=== PATIENT | male | born 1965 | race Caucasian/White ===

== ENCOUNTER 2018-10-06 06:39 | Emergency (ER) | payer OTHER ==
[~2018-10-06] VITALS: Ht 182.9 cm; Wt 78.4 kg
[2018-10-06 07:27] LABS: BASOPHILS ABSOLUTE AUTO 0.06 K/mm3 (0.00-0.23); BASOPHILS PERCENT AUTO 0 % (0-2); EOSINOPHILS ABSOLUTE AUTO 0.08 K/mm3 (0.00-0.68); EOSINOPHILS PERCENT AUTO 1 % (0-6); Hematocrit 48.1 % (37.0-53.0); Hemoglobin 17.4 g/dL (13.5-17.5); IMMATURE GRAN ABSOLUTE AUTO 0.07 K/mm3 (0.00-0.10); IMMATURE GRAN PERCENT AUTO 0 % (0-1); LYMPHOCYTES ABSOLUTE AUTO 1.22 K/mm3 (0.84-5.20); LYMPHOCYTES PERCENT AUTO 8 % (21-46); MONOCYTES ABSOLUTE AUTO 1.52 K/mm3 (0.16-1.47); MONOCYTES PERCENT AUTO 10 % (4-13); Mean Corpuscular HGB 34.8 pg (26.0-34.0); Mean Corpuscular HGB Conc 36.2 g/dL (31.5-36.5); Mean Corpuscular Volume 96 fL (80-100); NEUTROPHILS ABSOLUTE AUTO 13.01 K/mm3 (1.96-9.15); NEUTROPHILS PERCENT AUTO 82 % (41-73); Platelet Count 158 K/mm3 (150-400); RDW Standard Deviation 45.6 fL (35.1-46.3); White Blood Cell Count 15.96 K/mm3 (4.00-11.30)
[2018-10-06 07:41] LABS: Anion Gap 14 mmol/L (6-16); Blood Urea Nitrogen 13 mg/dL (8-24); Bun/Creatinine Ratio 17.8 (12.0-20.0); CO2, Blood 21 mmol/L (21-32); Calcium, Blood 8.8 mg/dL (8.5-10.1); Chloride, Blood 99 mmol/L (98-108); Creatinine, Blood 0.73 mg/dL (0.60-1.20); Glomerular Filtration Rate >60 (60-); Glucose, Blood 127 mg/dL (70-99); Potassium, Blood 3.9 mmol/L (3.5-5.5); Sodium, Blood 134 mmol/L (136-145)
[2018-10-06] MEDS ORDERED: Norco 10-325 T1 EACH PO (09:51)
[2018-10-06] MEDS ORDERED: CEPH500 PO (09:51)
[2018-10-06] MEDS ORDERED: Bactrim Ds Tab1 EACH PO (09:51)
== END 2018-10-06 11:05 | disposition home or self-care (01) ==
LOC: ER 06:39
PROVIDERS: Emergency Medicine
DX: L03.113 Cellulitis of right upper limb (principal); Z88.8 Allergy status to other drugs, medicaments and biological substances; Z87.891 Personal history of nicotine dependence
CPT/HCPCS: 36415; 73130; 80048; 85025; 96361; 96365; 96366; 96375; 99283-25; J2405; J3010; J3370; J7030; J7050

== ENCOUNTER → 2024-08-10 | Outpatient (CLI) | payer OTHER ==
[~2024-08-10] MED LIST: Bactrim Ds Tab1 EACH PO; CEPH500 PO; Cipro500 MG PO; Norco 10-325 T1 EACH PO
== END ==
LOC: LAB 07:29 → LAB SHORT 07:29
DX: D18.01 Hemangioma of skin and subcutaneous tissue (principal); D48.5 Neoplasm of uncertain behavior of skin
CPT/HCPCS: 88305

== ENCOUNTER 2025-01-30 08:09 | Day surgery (SDC) | payer OTHER ==
[~2025-01-30] VITALS: Ht 182.9 cm; Wt 69.3 kg
[2025-01-30] VITALS (13 sets, daily range): BP systolic 107–124; BP diastolic 73–86
[~2025-01-30 08:09] MED LIST changes: +ALBU90OI INH; +ATOR20 PO; +BUPR150ER PO; +DULO60 PO; +FLUT1DIS5 INH; +GABA400 PO; +MULTI-VITAMIN1 EAC2 PO; +OMEP20ER PO
[2025-01-30] MEDS ORDERED: CeFAZolin Sodium 2,000 MG in NS 100 ML IV SCH (09:30)
[2025-01-30] MEDS ORDERED: Lactated Ringer's 1,000 ML IV SCH (09:30)
[2025-01-30] MEDS ORDERED: Albuterol 2.5 MG/3 ML VIAL INH STA (11:15)
[2025-01-30] MEDS ORDERED: Ipratropium Bromide INH 0.02% 0.5 mg/2.5ML Vial INH STA (11:16)
[2025-01-30] MEDS ORDERED: Lidocaine HCl 1% 5 ML SYR INJ ONE ×2 (11:20)
[2025-01-30] MEDS ORDERED: Ipratropium/Albuterol SulF 2.5-0.5MG/3 ML Amp ONE (11:25)
[2025-01-30] MEDS ORDERED: Ipratropium/Albuterol SulF 2.5-0.5MG/3 ML Amp INH STA (11:34)
[2025-01-30] MEDS ORDERED: Rocuronium Bromide 10 MG/ML 5ML Injection IV ONE (11:40)
[2025-01-30] MEDS ORDERED: propofoL 20 ML IV ONE (11:40)
[2025-01-30] MEDS ORDERED: Bupivacaine 0.5% HCl 5 MG/ML 30MLVIAL ONE (11:40)
[2025-01-30] MEDS ORDERED: FentaNYL Citrate 50 MCG/ML 2 ML Injection ONE ×2 (11:40→11:59)
[2025-01-30] MEDS ORDERED: Midazolam HCl 1MG / ML 2ML Vial ONE (11:40)
--- NOTE | 2025-01-30 11:43 | NUR ---
History, Chart, Medications and Allergies reviewed before start of procedure. Patient States Post-Procedure ride home has been arranged. NEREIDA GLASSES AND DENTURES TRANSFERED TO PACU LABELED.
[2025-01-30] MEDS ORDERED: Dexamethasone Sod Phos 10 MG/ML 1ML VIAL ONE (11:58)
[2025-01-30] MEDS ORDERED: Ketorolac Tromethamine 30mg Vial ONE (12:12)
[2025-01-30] MEDS ORDERED: Ondansetron HCl 2 MG / ML 2ML Vial ONE (12:12)
[2025-01-30] MEDS ORDERED: HYDROmorphone HCl/Pf 1MG SYR IV PRN ×2 (12:20)
[2025-01-30] MEDS ORDERED: Ondansetron HCl 2 MG / ML 2ML Vial IV PRN (12:20)
[2025-01-30] MEDS ORDERED: FentaNYL Citrate 50 MCG/ML 2 ML Injection IV PRN ×2 (12:20)
[2025-01-30] MEDS ORDERED: Albuterol 2.5 MG/3 ML VIAL INH ONE (12:20)
[2025-01-30] MEDS ORDERED: Phenylephrine HCl 100 MCG/ML-NS 10MLSYR (1MG/10ML) ONE (12:36)
[2025-01-30] MEDS ORDERED: Sugammadex Sodium 200 MG/2ML SDV (100 MG/ML) ONE (12:41)
[2025-01-30] MEDS ORDERED: HYDROcodone 5-APAP 325 TAB PO PRN (13:05)
--- NOTE | 2025-01-30 14:48 | NUR ---
DISCHARGE NOTE PT A&OX4, BREATHING RA, VSS, NO COMPLAINTS OF PAIN OR NAUSEA, ICE PACK TO SURGICAL SITE. Patient up to Ambulate independently. Gait steady. Discharge instructions reviewed with patient. Patient verbalizes understanding. Copy given to patient to take home. Dressing to procedure site clean, dry, intact with no visible drainage, swelling, erythema or bruising noted.DISCHARGE INSTRUCTIONS ALSO GIVEN TO MELINA WHYTE, PER PT REQUEST. PT ALERT AT DISCHARGE BUT HAS A FLAT AFFECT. SLOW TO RESPOND. BECAME AGITATED WHEN RIDE HOME CAR 'BROKE DOWN' IN THE PARKING LOT.
== END 2025-01-30 14:45 | disposition home or self-care (01) ==
LOC: ORSCMMR 08:09 → ORD 09:00 → ORSCMMR 10:00
PROVIDERS: Surgery
PROC: 0YU60JZ Supplement Left Inguinal Region with Synthetic Substitute, Open Approach (ICD-10-PCS; principal; 2025-01-30 10:00)
DX: K40.90 Unilateral inguinal hernia, without obstruction or gangrene, not specified as recurrent (principal); D17.6 Benign lipomatous neoplasm of spermatic cord; E78.5 Hyperlipidemia, unspecified; J44.9 Chronic obstructive pulmonary disease, unspecified; F17.210 Nicotine dependence, cigarettes, uncomplicated; K21.9 Gastro-esophageal reflux disease without esophagitis; Z79.899 Other long term (current) drug therapy
CPT/HCPCS: C1781; J0690; J1100; J1885; J2250; J2371; J2405; J2704; J3010; J7120

== ENCOUNTER → 2025-05-01 | Outpatient (CLI) | payer OTHER | END | disposition home or self-care (01) | LOC: LAB SHORT 11:47 → LAB 11:47 | DX: D48.5 Neoplasm of uncertain behavior of skin (principal) | CPT/HCPCS: 88304 ==